=== PATIENT | male | born 1990 | race African-American/Black ===

== ENCOUNTER 2025-02-18 06:29 | Emergency (ER) | payer OTHER ==
[~2025-02-18] VITALS: Ht 182.9 cm; Wt 104.5 kg
[~2025-02-18 06:29] MED LIST: PENICILLIN
[2025-02-18 06:39] VITALS: TEMP 98.4
[2025-02-18] MEDS: KETOROLAC TROMETHAMINE 60 MG/2 ML VIAL IM ONE (08:03)
[2025-02-18] MEDS: PERTUSS(ACELL),DIPH,TET/PF 0.5 ML SYRINGE [ADULT] IM. ONE (08:05)
[2025-02-18] MEDS ORDERED: METH-659 PO (09:23)
[2025-02-18] MEDS ORDERED: IBUP-1492 PO (09:23)
[2025-02-18] MEDS ORDERED: LIDO-57 TP (09:23)
[2025-02-18] MEDS ORDERED: PERCT PO (09:23)
[2025-02-18] MEDS: methocarbamoL 500 MG TABLET PO ONE (09:25)
[2025-02-18] MEDS: OxyCODONE HCL/ACETAMINOPHEN 5-325 MG TABLET PO ONE (09:26)
[2025-02-18 09:50] VITALS: BP 129/85; PULSE 85; RESP 20; O2SAT 99
== END 2025-02-18 09:52 | disposition home or self-care (01) ==
LOC: EMS 06:34
DX: S40.012A Contusion of left shoulder, initial encounter (principal); S80.02XA Contusion of left knee, initial encounter; F17.210 Nicotine dependence, cigarettes, uncomplicated; Z88.0 Allergy status to penicillin; V23.49XA Other motorcycle driver injured in collision with car, pick-up truck or van in traffic accident, initial encounter; Y93.89 Activity, other specified; Y92.488 Other paved roadways as the place of occurrence of the external cause; Y99.8 Other external cause status
CPT/HCPCS: 99284; 72170; 73030; 73562; 90715; 90471; 96372; J1885